=== PATIENT | male | born 1990 | race Caucasian/White ===

== ENCOUNTER 2016-12-23 20:56 | Emergency (ER) | payer OTHER ==
[~2016-12-23] VITALS: Ht 172.7 cm; Wt 87.5 kg
[~2016-12-23 20:56] MED LIST: NAPROSYN500 MG PO; TRAMADOL HCL50 MG PO
[2016-12-23] MEDS ORDERED: NORCO 7.5/321 TABLET PO (23:14)
[2016-12-23] MEDS ORDERED: MOTRIN800 MG PO (23:14)
[2016-12-23 23:24] VITALS: BP 144/91
== END 2016-12-23 23:31 | disposition home or self-care (01) ==
LOC: RME 20:56 → EME 20:56 → RME 23:31
PROC: 0H95XZZ Drainage of Chest Skin, External Approach (ICD-10-PCS; principal; 2016-12-23)
DX: L72.3 Sebaceous cyst (principal); L08.89 Other specified local infections of the skin and subcutaneous tissue
CPT/HCPCS: 99281; 99284